=== PATIENT | male | born 1970 | race Caucasian/White ===

== ENCOUNTER 2021-06-06 12:40 | Emergency (ER) | payer BC, OTHER ==
[2021-06-06] MEDS ORDERED: KEFZOL 1 GM IM ONE (12:58)
[2021-06-06] MEDS ORDERED: HYDROCODONE-ACETAMIN 10-325 MG PO ONE (13:01)
[2021-06-06 13:02] VITALS: BP 166/103
[2021-06-06] MEDS ORDERED: KEFZOL 1 GM ONE ×2 (13:07→13:09)
--- NOTE | 2021-06-06 13:29 | XRAY ---
Indication: Laceration. Comparison: None 3 view left 2nd finger demonstrates distal plantar soft tissue swelling/laceration with overlying bandage material. No other bony, articular, or soft tissue abnormalities.
--- NOTE | 2021-06-06 13:38 | ERPHSYRPT ---
- History of Present Illness Source: patient Exam Limitations: no limitations Patient Subjective Stated Complaint: pt cut left index finger with circular saw Triage Nursing Assessment: pt alert, resp easy, skin w/d/p, has laceration to left index finger with small amt of bleedig, pressure dressing applied Physician History: 50 yo wm w L 2nd digit vs circular saw at home. Pt is R handed and strates that tetanus is UTD. Pt denies other/previous injury. Occurred: just prior to arrival Method of Injury: other (Circular saw vs L 2nd digit) Quality: constant, aching Severity of Pain-Max: severe Severity of Pain-Current: severe Extremities Pain Location: 2nd finger: left Modifying Factors: Improves With: movement Associated Symptoms: none Allergies/Adverse Reactions: No Known Drug Allergies Allergy (Unverified 06/06/21 13:02) Hx Tetanus, Diphtheria Vaccination/Date Given: Yes (last 5 years) Hx Influenza Vaccination/Date Given: No Hx Pneumococcal Vaccination/Date Given: No Immunizations Up to Date: Yes Travel Risk - International Travel Have you traveled outside of the country in past 3 weeks: No - Coronavirus Screening Are you exhibiting any of the following symptoms?: No Close contact with a COVID-19 positive Pt in past 14-21 Days: No - Vaccine Status Have you recieved a Covid-19 vaccination: Yes [employer]: [employer] - Vaccination Dates Dates if Unknown: ? - Review of Systems Constitutional: No Symptoms Eyes: No Symptoms Ears, Nose, & Throat: No Symptoms Respiratory: No Symptoms Cardiac: No Symptoms Abdominal/Gastrointestinal: No Symptoms Genitourinary Symptoms: No Symptoms Skin: No Symptoms Neurological: No Symptoms Psychological: No Symptoms Endocrine: No Symptoms Hematologic/Lymphatic: No Symptoms Immunological/Allergic: No Symptoms - Past Medical History Pertinent Past Medical History: No - Past Surgical History Gastrointestinal: Appendectomy Musculoskeletal: Orthopedic Surgery Other Surgical History: shoulders ,hands - Social History Smoking Status: Current every day smoker Exposure to second hand smoke: Yes Drug Use: none Patient Lives Alone: No Significant Family History: no pertinent family hx - Nursing Vital Signs Nursing Vital Signs: Initial Vital Signs Temperature 97 F 06/06/21 12:59 Pulse Rate 93 H 06/06/21 12:59 Respiratory Rate 18 06/06/21 12:59 Blood Pressure 166/103 06/06/21 12:59 O2 Sat by Pulse Oximetry 98 06/06/21 12:59 Pain Scale Pain Intensity 6 Hypertensive - Physical Exam General Appearance: no apparent distress Eyes, Ears, Nose, Throat Exam: normal ENT inspection, TMs normal, pharynx normal, moist mucous membranes Neck Exam: normal inspection, non-tender, supple, full range of motion, No Brudzinski, No Kernig's, No meningismus, No carotid bruit Cardiovascular/Respiratory Exam: normal breath sounds, regular rate/rhythm, heart sounds normal Abdominal Exam: non-tender, soft Back Exam: normal inspection, normal range of motion Shoulder Exam: normal inspection, non-tender, no evidence of injury Elbow/Forearm Exam: normal inspection, non-tender, no evidence of injury Wrist Exam: normal inspection, non-tender, no evidence of injury Hand Exam: laceration (L 2nd digit palmar, distal phalanyx w tissue defect/Good distal capillary return and sensation) Neuro/Tendon Exam: normal sensation, normal motor functions, normal tendon functions, responds to pain, no evidence tendon injury Mental Status Exam: alert, oriented x 3, cooperative Skin Exam: normal color, warm, dry SpO2 Interpretation: normal SpO2: 98 O2 Delivery: Room Air - Course Nursing assessment & vital signs reviewed: Yes - Radiology Exams Hand X-ray Interpretation: Discussed w/ radiologist (L 2nd digit wo fx-dislocation) Ordered Tests: Active Orders 24 hr Category Date Time Status FINGER(S) Stat Exams 06/06/21 13:19 Completed Medication Summary Discontinued Medications Generic Name Dose Route Start Last Admin Trade Name Giovanniq PRN Reason Stop Dose Admin Hydrocodone Bitart/Acetaminophen 1 tablet 06/06/21 13:01 06/06/21 13:07 Hydrocodone/Acetamin 10-325 Mg Tablet PO 06/06/21 13:02 1 tablet STAT ONE Administration Cefazolin Sodium 2 g 06/06/21 12:58 06/06/21 13:08 Cefazolin Sodium 1 Gm Vial IM 06/06/21 12:59 2 g STAT ONE Administration Cefazolin Sodium Confirm 06/06/21 13:07 Cefazolin Sodium 1 Gm Vial Administered 06/06/21 13:08 Dose 1 g .ROUTE .STK-MED ONE Cefazolin Sodium Confirm 06/06/21 13:09 Cefazolin Sodium 1 Gm Vial Administered 06/06/21 13:10 Dose 1 g .ROUTE .STK-MED ONE - Progress Progress Note: 06/06/21 13:40 2gms IM Kefzol [id number] po x1 06/06/21 14:20 Spoke w jovani Zuleta pt wrapped w xeroform gauze w appointment to see him at 8:30AM 06/07/21. Ok w Keflex. 06/06/21 19:27 L 2nd digit dressed per nursing/NVI Counseled pt/family regarding: diagnosis, need for follow-up, rad results - Departure Departure Disposition: Home Clinical Impression: Soft tissue injury of finger of left hand Condition: Stable Critical Care Time: No Referrals: DOCTOR,NO FAMILY [Primary Care Provider] - Follow up/PCP as directed Instructions: Wound Care (DC) Additional Instructions: Dr. Yo 8:30 tomorrow 06/07/21 [address] [facility] [address] Nothing to eat/drink after midnight Pain meds as needed Start antibiotic Prescriptions: Hydrocodone/Acetaminophen [Hydrocodone-Acetamin 10-325 mg] 1 each PO Q4-6HPRN PRN #10 tablet MDD 4 tabs PRN Reason: Pain Cephalexin Mh 500 mg [Keflex 500 mg] 500 mg PO TID #30
[2021-06-06 14:22] VITALS: PULSE 87
[2021-06-06 14:25] VITALS: O2SAT 98
== END 2021-06-06 14:42 | disposition home or self-care (01) ==
LOC: ED 12:40
DX: S61.211A Laceration without foreign body of left index finger without damage to nail, initial encounter (principal); W27.0XXA Contact with workbench tool, initial encounter; Y92.009 Unspecified place in unspecified non-institutional (private) residence as the place of occurrence of the external cause; Z72.0 Tobacco use
CPT/HCPCS: 73140; 96372; 99284; J0690; A9270-GY

== ENCOUNTER 2021-08-09 16:33 | Emergency (ER) | payer OTHER ==
--- NOTE | 2021-08-09 16:49 | ERPHSYRPT ---
- History of Present Illness Time Seen by Provider: 08/09/21 16:44 Source: patient Exam Limitations: no limitations Patient Subjective Stated Complaint: hand injury Triage Nursing Assessment: Patient ambulated back to ED and transferred self to bed. Patient A+O X3. patient's skin pink, warm and dry. Patient complains of left hand injury. Patient states he tripped and his left hand went into the wall causing a drywall nail to go through his left palm. Patient has 0.1cm X 0.1cm puncture site to palm of hand. Patient states his pain is 8/10 and very tender around his 3rd digit. 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 He did not completely penetrate but then immediately removed his hand. There does not appear to be any retained foreign body. However, he is having pain with movement of his left fourth digit. Patient recently had a tetanus shot. Therefore his tetanus status is up-to-date. He does have a relationship with the hand surgeon, Dr. Yo. Patient has no known drug allergies. Occurred: hours ago (1) Method of Injury: fell Quality: aching Severity of Pain-Max: mild (To moderate) Severity of Pain-Current: mild Extremities Pain Location: hand: left Modifying Factors: Improves With: movement Associated Symptoms: none Allergies/Adverse Reactions: No Known Drug Allergies Allergy (Verified 08/09/21 16:36) Hx Tetanus, Diphtheria Vaccination/Date Given: Yes (last 5 years) Hx Influenza Vaccination/Date Given: No Hx Pneumococcal Vaccination/Date Given: No Immunizations Up to Date: Yes Travel Risk - International Travel Have you traveled outside of the country in past 3 weeks: No - Coronavirus Screening Are you exhibiting any of the following symptoms?: No Close contact with a COVID-19 positive Pt in past 14-21 Days: No - Vaccine Status Have you recieved a Covid-19 vaccination: Yes 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 - Review of Systems Constitutional: No Symptoms Eyes: No Symptoms Ears, Nose, & Throat: No Symptoms Respiratory: No Symptoms Cardiac: No Symptoms Abdominal/Gastrointestinal: No Symptoms Genitourinary Symptoms: No Symptoms Musculoskeletal: Injury (Left hand) Skin: Other (Puncture wound palmar aspect left hand) Neurological: No Symptoms Psychological: No Symptoms Endocrine: No Symptoms Hematologic/Lymphatic: No Symptoms Immunological/Allergic: No Symptoms All Other Systems: Reviewed and Negative - Past Medical History Pertinent Past Medical History: No - Past Surgical History Past Surgical History: Yes Gastrointestinal: Appendectomy Musculoskeletal: Orthopedic Surgery Other Surgical History: shoulders ,hands - Social History Smoking Status: Current every day smoker Exposure to second hand smoke: Yes Drug Use: none Patient Lives Alone: No Significant Family History: no pertinent family hx - Nursing Vital Signs Nursing Vital Signs: Initial Vital Signs Temperature 98.0 F 08/09/21 16:37 Pulse Rate 101 H 08/09/21 16:37 Respiratory Rate 18 08/09/21 16:37 Blood Pressure 179/117 08/09/21 16:37 O2 Sat by Pulse Oximetry 95 08/09/21 16:37 Pain Scale Pain Intensity 8 - Physical Exam General Appearance: no apparent distress, alert Eyes, Ears, Nose, Throat Exam: normal ENT inspection, moist mucous membranes Neck Exam: normal inspection, non-tender, supple, full range of motion Cardiovascular/Respiratory Exam: chest non-tender, no respiratory distress Abdominal Exam: non-tender Back Exam: normal inspection, normal range of motion, No CVA tenderness, No vertebral tenderness Shoulder Exam: normal inspection, non-tender, no evidence of injury, normal ROM Elbow/Forearm Exam: normal inspection, non-tender, no evidence of injury, normal ROM Wrist Exam: normal inspection, non-tender, no evidence of injury, normal ROM Hand Exam: limited ROM (There is no evidence of bleeding or foreign body.), soft tissue tenderness (There is a 2 to 3 mm puncture wound in the center of his left hand, palmar aspect. It does not appear to be a through and through penetrating wound. The patient is able to flex and extend all fingers of the left hand. However, he is experiencing some pain when he flexes the left fourth digit. ) Neuro/Tendon Exam: normal sensation, normal motor functions, normal tendon functions, responds to pain, no evidence tendon injury Mental Status Exam: alert, oriented x 3, cooperative Skin Exam: normal color, warm, dry SpO2 Interpretation: normal SpO2: 95 O2 Delivery: Room Air - Course Nursing assessment & vital signs reviewed: Yes Ordered Tests: Active Orders 24 hr Category Date Time Status Wound Care STAT Care 08/09/21 16:46 Active HAND (MINIMUM 3 VIEWS) Stat Exams 08/09/21 16:54 Completed - Progress Progress: unchanged, pain not gone completely Progress Note: 08/09/21 17:02 X-ray left hand shows no acute fracture or dislocation. There is no evidence of any foreign body. Counseled pt/family regarding: diagnosis, need for follow-up, rad results - Departure Departure Disposition: Home Clinical Impression: Puncture wound of left hand Condition: Stable Critical Care Time: No Referrals: DOCTOR,NO FAMILY [Primary Care Provider] - Follow up/PCP as directed Additional Instructions: Keep areas clean with soap and water. Do not use lotions or ointments or creams to cover up the puncture wound. Take your antibiotics as prescribed. Call Dr. Yo office tomorrow, August 10, 2021, in the morning to make arrangements for follow-up appointment. Prescriptions: Hydrocodone/APAP 5/325 [[place] 5/325 mg] 1 each PO Q8H PRN PRN #6 tablet MDD 3 PRN Reason: Pain Cephalexin Mh 500 mg [Keflex 500 mg] 500 mg PO TID #21 cap
--- NOTE | 2021-08-09 17:01 | XRAY ---
Indication: Mid palm puncture wound. Comparison: None 3 view left hand obtained. No bony, articular, or soft tissue abnormalities.
[2021-08-09 17:08] VITALS: BP 168/106; PULSE 80; O2SAT 99
== END 2021-08-09 17:11 | disposition home or self-care (01) ==
LOC: ED 16:33
DX: S61.432A Puncture wound without foreign body of left hand, initial encounter (principal); W01.118A Fall on same level from slipping, tripping and stumbling with subsequent striking against other sharp object, initial encounter; Y93.H3 Activity, building and construction; Y92.009 Unspecified place in unspecified non-institutional (private) residence as the place of occurrence of the external cause; Z72.0 Tobacco use; Z79.891 Long term (current) use of opiate analgesic
CPT/HCPCS: 73130; 99283

== ENCOUNTER 2021-08-27 19:21 | Emergency (ER) | payer OTHER ==
--- NOTE | 2021-08-27 19:26 | ERPHSYRPT ---
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 Patient's tetanus status is up-to-date. Patient does have a hand surgeon he sees, Dr. Yo at of [facility] in [facility]. Patient has no known drug allergies. Occurred: just prior to arrival Method of Injury: other (Tablesaw lacerationaccidental) Quality: aching, throbbing Severity of Pain-Max: moderate Severity of Pain-Current: moderate Extremities Pain Location: thumb: left Modifying Factors: Improves With: movement Associated Symptoms: none Allergies/Adverse Reactions: No Known Drug Allergies Allergy (Verified 08/27/21 19:35) Hx Tetanus, Diphtheria Vaccination/Date Given: Yes (last 5 years) Hx Influenza Vaccination/Date Given: No Hx Pneumococcal Vaccination/Date Given: No Travel Risk - International Travel Have you traveled outside of the country in past 3 weeks: No - Coronavirus Screening Are you exhibiting any of the following symptoms?: No Close contact with a COVID-19 positive Pt in past 14-21 Days: No - Vaccine Status Have you recieved a Covid-19 vaccination: Yes 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 - Review of Systems Constitutional: No Symptoms Eyes: No Symptoms Ears, Nose, & Throat: No Symptoms Respiratory: No Symptoms Cardiac: No Symptoms Abdominal/Gastrointestinal: No Symptoms Genitourinary Symptoms: No Symptoms Musculoskeletal: Injury (Left thumb) Skin: Other (Serration left thumb) Neurological: No Symptoms Psychological: No Symptoms Endocrine: No Symptoms Hematologic/Lymphatic: No Symptoms Immunological/Allergic: No Symptoms All Other Systems: Reviewed and Negative - Past Medical History Pertinent Past Medical History: No - Past Surgical History Past Surgical History: Yes Gastrointestinal: Appendectomy Musculoskeletal: Orthopedic Surgery Other Surgical History: shoulders ,hands - Social History Smoking Status: Current every day smoker Exposure to second hand smoke: Yes Drug Use: none Patient Lives Alone: No Significant Family History: no pertinent family hx - Nursing Vital Signs Nursing Vital Signs: Initial Vital Signs Temperature 97.6 F 08/27/21 19:25 Pulse Rate 98 H 08/27/21 19:25 Respiratory Rate 18 08/27/21 19:25 Blood Pressure 176/112 08/27/21 19:25 O2 Sat by Pulse Oximetry 99 08/27/21 19:25 Pain Scale Pain Intensity 5 - Physical Exam General Appearance: no apparent distress, alert, anxiety Eyes, Ears, Nose, Throat Exam: normal ENT inspection, moist mucous membranes Neck Exam: normal inspection, non-tender, supple, full range of motion Cardiovascular/Respiratory Exam: chest non-tender, no respiratory distress Abdominal Exam: non-tender Back Exam: normal inspection, normal range of motion, No CVA tenderness, No vertebral tenderness Shoulder Exam: normal inspection, non-tender, no evidence of injury, normal ROM Elbow/Forearm Exam: normal inspection, non-tender, no evidence of injury, normal ROM Wrist Exam: normal inspection, non-tender, no evidence of injury, normal ROM Hand Exam: laceration (Left thumb dorsal aspect base of nail 3 cm mild oozing. Neurovascularly intact. Tendon function appears normal) Neuro/Tendon Exam: normal sensation, normal motor functions, normal tendon functions, responds to pain Mental Status Exam: alert, oriented x 3, cooperative Skin Exam: normal color, warm, dry, laceration O2 Delivery: Room Air (See above) Procedures - Laceration/Wound Repair Left Dorsal Finger Time of Procedure: 19:45 Wound Location: Left, hand (Dorsal thumb) Wound Length (cm): 3 Wound's Depth, Shape: superficial, linear Wound Explored: to base Irrigated: Yes Hibiclens Prep: Yes Anesthesia: 1% Lidocaine Volume Anesthetic (ccs): 3 Wound Repaired With: sutures Suture Size/Type: 3-0, nylon Number of Sutures: 6 Layer Closure?: No - Course Nursing assessment & vital signs reviewed: Yes Ordered Tests: Active Orders 24 hr Category Date Time Status HAND (MINIMUM 3 VIEWS) Stat Exams 08/27/21 20:02 Taken Medication Summary Discontinued Medications Generic Name Dose Route Start Last Admin Trade Name Freq PRN Reason Stop Dose Admin Bacitracin Zinc Confirm 08/27/21 19:56 Bacitracin Packet 0.9 Gm Pckt Administered 08/27/21 19:57 Dose 1 gm .ROUTE .STK-MED ONE Lidocaine HCl Confirm 08/27/21 19:32 Lidocaine Hcl 1% 20 Ml Mdv 20 Ml Ml Administered 08/27/21 19:33 Dose 10 ml .ROUTE .STK-MED ONE - Progress Progress: improved Progress Note: 08/27/21 20:36 Medical decision making: I reviewed the patient and his condition as well as radiographic findings with hand surgeon Dr. Yo. Dr. Yo agrees with the plan of antibiotics, pain control and follow-up in his office on Sunday, August 29, 2021. 08/27/21 20:37 X-ray left hand shows a distal phalanx nondisplaced fracture. Counseled pt/family regarding: diagnosis, need for follow-up, rad results - Departure Departure Disposition: Home Clinical Impression: Thumb laceration Condition: Stable Critical Care Time: No Referrals: DOCTOR,NO FAMILY [Primary Care Provider] - Follow up/PCP as directed Additional Instructions: Keep current bandage in place until you see Dr. Yo in his office. His office will call you Sunday, August 29, 2021 to arrange a follow-up at that afternoon. Take your antibiotics and pain medicine as prescribed. Prescriptions: Hydrocodone/APAP 5/325 [[place] 5/325 mg] 1 each PO Q8H PRN PRN #8 tablet MDD 3 PRN Reason: Pain Cephalexin Mh 500 mg [Keflex 500 mg] 500 mg PO TID #21 cap
[2021-08-27] MEDS ORDERED: XYLOCAINE 1% HCL 20 ML MDV ONE (19:32)
[2021-08-27] MEDS ORDERED: BACIGUENT PACKET ONE (19:56)
[2021-08-27] MEDS ORDERED: ROCEPHIN 1 Gm-D5w 50 ml Bag** 1 G/50 ML IVPB IV STA (20:42)
[2021-08-27] MEDS ORDERED: Hydromorphone 1 mg/ml Injection IV ONE (20:42)
[2021-08-27] MEDS ORDERED: Zofran 4 MG/2 ML VIAL IV ONE (20:42)
[2021-08-27] MEDS ORDERED: XYLOCAINE 1% HCL 20 ML MDV IJ ONE (20:43)
[2021-08-27] MEDS ORDERED: NORCO 5/325 MG PO ONE (20:43)
[2021-08-27] MEDS ORDERED: BACIGUENT PACKET TP ONE (20:43)
[2021-08-27] MEDS ORDERED: Zofran 4 MG/2 ML VIAL ONE (20:46)
[2021-08-27] MEDS ORDERED: Hydromorphone 1 mg/ml Injection ONE (20:46)
[2021-08-27] MEDS ORDERED: ROCEPHIN 1 Gm-D5w 50 ml Bag** 1 G/50 ML IVPB IV ONE (20:46)
[2021-08-27] MEDS ORDERED: NORCO 5/325 MG ONE (20:46)
[2021-08-27 21:06] VITALS: BP 161/109; PULSE 84; O2SAT 96
--- NOTE | 2021-08-27 21:54 | XRAY ---
Indication: Thumb laceration. Comparison: August 09, 2021. 3 view left hand demonstrates new nondisplaced fracture distal 1st phalanx with soft tissue swelling. No other bony, articular, or soft tissue abnormalities.
== END 2021-08-27 21:10 | disposition home or self-care (01) ==
LOC: ED 19:21
DX: S61.012A Laceration without foreign body of left thumb without damage to nail, initial encounter (principal); W31.2XXA Contact with powered woodworking and forming machines, initial encounter; Z72.0 Tobacco use
CPT/HCPCS: 12002; 29130; 36000; 73130; 96372; 96374; 96375; 99284; J0696; J1170; J2405; A9270-GY

== ENCOUNTER 2022-01-22 16:20 | Emergency (ER) | payer OTHER ==
--- NOTE | 2022-01-22 17:29 | ERPHSYRPT ---
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 I am not sure what cut me or if there is anything in there." Triage Nursing Assessment: alert and oriented X 3, skin pwd Pt has laceration notd to right thumb, approx 1 cm, laceration noted to right forearm approx 2 cm x 2 cm. PT has no other injuries or complaints. Physician History: 51-year-old male up-to-date with tetanus presented in the ER with chief complaint of laceration right forearm after he got off of a tractor, slipped and fell, tried to catch himself with outstretched hand and his forearm hit something causing laceration. Complaining of moderate intensity pain with palpation. No difficulty movements at the wrist and fingers. No numbness or tingling in the fingers. No injury anywhere else. Occurred: this afternoon Method of Injury: fell Quality: sharpness Severity of Pain-Max: moderate Severity of Pain-Current: moderate Extremities Pain Location: forearm: right Modifying Factors: Worsens With: movement Associated Symptoms: none Allergies/Adverse Reactions: No Known Drug Allergies Allergy (Verified 08/27/21 19:35) Hx Tetanus, Diphtheria Vaccination/Date Given: Yes (last 5 years) Hx Influenza Vaccination/Date Given: No Hx Pneumococcal Vaccination/Date Given: No Immunizations Up to Date: Yes Travel Risk - International Travel Have you traveled outside of the country in past 3 weeks: No - Coronavirus Screening Are you exhibiting any of the following symptoms?: No Close contact with a COVID-19 positive Pt in past 14-21 Days: No - Vaccine Status Have you recieved a Covid-19 vaccination: Yes 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 - Review of Systems Constitutional: No Symptoms Ears, Nose, & Throat: No Symptoms Respiratory: No Symptoms Cardiac: No Symptoms, Orthopnea Genitourinary Symptoms: No Symptoms Musculoskeletal: Injury Skin: Skin Lesions Neurological: No Symptoms Endocrine: No Symptoms Hematologic/Lymphatic: No Symptoms Immunological/Allergic: No Symptoms - Past Medical History Pertinent Past Medical History: Yes Cardiac History: Hypertension - Past Surgical History Past Surgical History: Yes Gastrointestinal: Appendectomy Musculoskeletal: Orthopedic Surgery Other Surgical History: shoulders ,hands - Social History Smoking Status: Current every day smoker How long have you smoked: 25 yrs Exposure to second hand smoke: Yes Drug Use: none Patient Lives Alone: No Significant Family History: no pertinent family hx - Nursing Vital Signs Nursing Vital Signs: Initial Vital Signs Temperature 98.7 F 01/22/22 16:28 Pulse Rate 90 01/22/22 16:28 Respiratory Rate 20 01/22/22 16:28 Blood Pressure 169/101 01/22/22 16:28 O2 Sat by Pulse Oximetry 96 01/22/22 16:28 Pain Scale Pain Intensity 2 - Physical Exam General Appearance: no apparent distress, alert Eyes, Ears, Nose, Throat Exam: normal ENT inspection Neck Exam: normal inspection, full range of motion Cardiovascular/Respiratory Exam: normal breath sounds, regular rate/rhythm Elbow/Forearm Exam: normal ROM, soft tissue tenderness (Right mid forearm with 1.5 cm laceration with partially cut tendon. Intact distal neurovascular. Intact extension at fingers/wrist and isolated distal interphalangeal joint.) Hand Exam: normal inspection, non-tender, no evidence of injury, normal ROM Neuro/Tendon Exam: normal sensation, normal motor functions Mental Status Exam: alert, oriented x 3, cooperative Skin Exam: normal color SpO2 Interpretation: normal SpO2: 96 O2 Delivery: Room Air Procedures - Laceration/Wound Repair Right Arm Time of Procedure: 17:06 Wound Location: Right Wound Length (cm): 1.5 Wound's Depth, Shape: into muscle Wound Explored: clean Irrigated: Yes Hibiclens Prep: Yes Anesthesia: 1% Lidocaine Volume Anesthetic (ccs): 4 Wound Repaired With: sutures Suture Size/Type: ethilon Number of Sutures: 3 Sterile Dressing Applied?: Yes Splint Applied?: No Ordered Tests: Active Orders 24 hr Category Date Time Status FOREARM Stat Exams 01/22/22 Ordered - Progress Progress: improved Progress Note: 01/22/22 17:26 Laceration is repaired. Has partial tendon cut, will refer an outpatient with hand surgery. X-rays reviewed by me did not reveal any acute osseous abnormality/foreign body. Official report is pending. Recommended Tylenol/ibuprofen and outpatient follow-up. Counseled pt/family regarding: diagnosis, need for follow-up, rad results - Departure Departure Disposition: Home Clinical Impression: Forearm laceration involving tendon Condition: Stable Critical Care Time: No Referrals: DOCTOR,NO FAMILY [Primary Care Provider] - Follow up/PCP as directed ABIGAIL DUFF MD [NON-STAFF PHY W/O PRIVILEGES] - Follow up/PCP as directed (Call tomorrow for reevaluation) Instructions: Laceration Repair With Stitches (DC) Additional Instructions: Take Tylenol/ibuprofen as needed for pain. Avoid exertional activity with right upper extremity. Follow-up with hand surgery for reevaluation. Return to ER for increasing swelling pain redness discharge/fever chills. Prescriptions: Ibuprofen 600 mg PO Q6HPRN PRN 10 Days #20 tablet PRN Reason: Pain
[2022-01-22 17:50] VITALS: BP 148/96; PULSE 84; O2SAT 97
--- NOTE | 2022-01-22 18:10 | XRAY ---
Indication: Posterior laceration following fall. Comparison: None 2 view right forearm demonstrates small focus posterior soft tissue swelling without radiopaque foreign body. No bony, articular, or soft tissue abnormalities.
== END 2022-01-22 18:02 | disposition home or self-care (01) ==
LOC: ED 16:20
DX: S56.921A Laceration of unspecified muscles, fascia and tendons at forearm level, right arm, initial encounter (principal); S51.811A Laceration without foreign body of right forearm, initial encounter; W01.10XA Fall on same level from slipping, tripping and stumbling with subsequent striking against unspecified object, initial encounter; Y93.H9 Activity, other involving exterior property and land maintenance, building and construction; M79.631 Pain in right forearm; I10 Essential (primary) hypertension; Z72.0 Tobacco use
CPT/HCPCS: 12001; 73090; 99282

== ENCOUNTER 2024-09-18 08:15 | Emergency (ER) | payer OTHER ==
[2024-09-18 08:23] VITALS: RESP 18; TEMP 98.2; O2SAT 98
--- NOTE | 2024-09-18 08:26 | ERPHSYRPT ---
- History of Present Illness Time Seen by Provider: 09/18/24 08:25 Source: patient Exam Limitations: no limitations Patient Subjective Stated Complaint: PT states "I have a bad back and I just went to Dr. Dukes for the first time the other day and they are doing the init ial drug screens and then he said he was going to do an injection and give some percocets but I cannot take the pain anymore. It is in my left hip." Triage Nursing Assessment: PT presented alert and oriented X 3, skin pwd. pt ambulates with a slow limp. Pt grunts and groans when he moves. Physician History: This is a 54-year-old white male patient who presents to the emergency department with chronic, intermittent left hip pain. Patient's primary care provider is Seun Zhu nurse practitioner. Patient saw Dr. Bolden, pain specialist on 09/11/2024. He did not receive any pain medication as the patient needed to provide a urine specimen for urine drug screen first. He has done that. He is to follow-up with Dr. Bolden to receive narcotic pain medicine under his direction and has an appointment on 09/23/2024 for injections. Patient denies chest pain. Patient denies shortness of breath. He has no abdominal pain. He has no urinary incontinence or bowel incontinence. He has no constipation. He does not have numbness in his left ankle or foot. He does not want any x-rays as he has had no fall or traumatic injury. Timing/Duration: intermittent (Chronically) Method of Injury: other (No injury) Quality: burning, sharp Back Pain Location: lumbar spine, paraspinous muscles (Lumbar level side and into left hip) Severity of Pain-Max: moderate Severity of Pain-Current: moderate Associated Symptoms: lower back pain, muscle spasms, No urinary incontinence, No loss of bowel control, No constipation, No problems urinating, No numbness in legs/feet, No tingling in legs/feet Previous symptoms: same symptoms as today, recently seen, no recent treatment Allergies/Adverse Reactions: No Known Drug Allergies Allergy (Verified 08/27/21 19:35) Home Medications: Lisinopril 20 mg [Zestril 20 MG] 20 mg PO DAILY 09/18/24 [History] Quetiapine Fumarate 100 mg [Seroquel 100 MG] 100 mg PO HS 09/18/24 [History] Hx Tetanus, Diphtheria Vaccination/Date Given: Yes (last 5 years) Hx Influenza Vaccination/Date Given: No Hx Pneumococcal Vaccination/Date Given: No Immunizations Up to Date: No Travel Risk - International Travel Have you traveled outside of the country in past 3 weeks: No - Emerging Infectious Disease Are you exhibiting symptoms associated with any current EIDs: No - Review of Systems Constitutional: No Symptoms Eyes: No Symptoms Ears, Nose, & Throat: No Symptoms Respiratory: No Symptoms Cardiac: No Symptoms Abdominal/Gastrointestinal: No Symptoms Genitourinary Symptoms: No Symptoms Musculoskeletal: Back Pain, Joint Pain (Left hip pain) Skin: No Symptoms Neurological: No Symptoms Psychological: No Symptoms Endocrine: No Symptoms Hematologic/Lymphatic: No Symptoms Immunological/Allergic: No Symptoms All Other Systems: Reviewed and Negative - Past Medical History Pertinent Past Medical History: Yes Cardiac History: Hypertension - Past Surgical History Past Surgical History: Yes Gastrointestinal: Appendectomy Musculoskeletal: Orthopedic Surgery Other Surgical History: shoulders ,hands Significant Family History: no pertinent family hx - Social History Smoking Status: Current every day smoker How long have you smoked: 25 yrs Exposure to second hand smoke: Yes Drug Use: none - Social Determinants of Health Will the patient participate in the screening: Declined to provide - Nursing Vital Signs Nursing Vital Signs: Initial Vital Signs Temperature 98.2 F 09/18/24 08:19 Pulse Rate 87 09/18/24 08:19 Respiratory Rate 18 09/18/24 08:19 Blood Pressure 196/109 09/18/24 08:19 O2 Sat by Pulse Oximetry 98 09/18/24 08:19 Pain Scale Pain Intensity 10 - Physical Exam General Appearance: mild distress, alert, anxiety, thin Eye Exam: PERRL/EOMI, eyes nml inspection Ears, Nose, Throat Exam: normal ENT inspection, moist mucous membranes Neck Exam: normal inspection, non-tender, supple, full range of motion Respiratory Exam: airway intact, No chest tenderness, No respiratory distress Gastrointestinal Exam: No tenderness Rectal Exam: not done Back Exam: muscle spasm (Left lower lumbar level muscle spasm paraspinous region. Pain shoots into the left hip), No vertebral tenderness, No point tenderness Extremity Exam: normal inspection, normal range of motion, pelvis stable Neurologic Exam: alert, oriented x 3, cooperative, spinner cap frame II-XII nml as tested, nml cerebellar function, nml station & gait, sensation nml Skin Exam: normal color, warm, dry Lymphatic Exam: No adenopathy SpO2 Interpretation: normal SpO2: 98 O2 Delivery: Room Air - Course Nursing assessment & vital signs reviewed: Yes - Progress Progress: improved, pain not gone completely Progress Note: 09/18/24 08:42 My medical decision making of the assignment of low complexity to this patient's medical issue today is based on review of the patient's past medical history, review the patient's medication list, reviewed patient drug allergy list, history present illness and physical findings on examination. The workup does not require any radiographic or laboratory studies. The patient does not want an x-ray. I am not convinced he actually needs one since he has had no acute trauma or fall injury. Differential diagnosis includes acute exacerbation of low back pain, left hip pain, sciatica Counseled pt/family regarding: diagnosis, need for follow-up - Departure Departure Disposition: Home Clinical Impression: Left-sided low back pain with sciatica Condition: Stable Critical Care Time: No Referrals: [facility] [employer]ATIVE [Primary Care Provider] - Follow up/PCP as directed Additional Instructions: Take your medications as prescribed. Call your prescribing provider and pain specialist today, 09/18/2024, to make arrangements for follow-up appointment for further evaluation management. Prescriptions: Prednisone 10 mg [Deltasone 10 mg] 10 mg PO TID #12 tablet Orphenadrine Citrate 100 mg [Norflex 100 MG Tablet] 100 mg PO BID #10 tab
[2024-09-18] MEDS ORDERED: ZOFRAN ODT 4 MG ONE (08:48)
[2024-09-18] MEDS ORDERED: Norflex 60 MG/2 ML ONE (08:48)
[2024-09-18] MEDS ORDERED: Sterile H2O 10 ml IJ ONE (08:48)
[2024-09-18] MEDS ORDERED: solu-MEDROL ONE (08:49)
[2024-09-18] MEDS ORDERED: Hydromorphone 1 mg/ml Injection ONE (08:49)
[2024-09-18] MEDS: solu-MEDROL 125 MG, Sterile H2O 10 ml 2 ML IM ONE (08:50)
[2024-09-18] MEDS: Norflex 60 MG/2 ML IM ONE (08:51)
[2024-09-18] MEDS: Hydromorphone 1 mg/ml Injection IM ONE (08:51)
[2024-09-18] MEDS: ZOFRAN ODT 4 MG PO ONE (08:51)
[2024-09-18 09:20] VITALS: BP 142/78; PULSE 89
== END 2024-09-18 09:26 | disposition home or self-care (01) ==
LOC: ED 08:15
DX: M54.42 Lumbago with sciatica, left side (principal); I10 Essential (primary) hypertension; Z79.52 Long term (current) use of systemic steroids; Z79.899 Other long term (current) drug therapy; Z72.0 Tobacco use
CPT/HCPCS: 96372; 99283; 99284; J1171; J2360; J2919; Q0162

== ENCOUNTER 2024-10-01 13:22 | Day surgery (SDC) | payer OTHER ==
[2024-10-01] MEDS ORDERED: LIDOCAINE HCL 2% 100 MG/5 ML IJ ONE (13:23)
[2024-10-01] MEDS ORDERED: propofoL IV ONE (14:46)
--- NOTE | 2024-10-01 17:00 | XRAY ---
Indication: Bilateral L4-S1 MBB. Intraoperative fluoroscopy provided for 9 seconds. Single digital spot image submitted for interpretation demonstrates posterior needle tips projecting over expected left and right L4-S1 nerve roots. Correlate with intraoperative findings/report.
--- NOTE | 2024-10-01 17:05 | XRAY ---
9 seconds of fluoroscopy was used in surgery for a bilateral L4-S1 MBB.
== END 2024-10-01 15:12 | disposition home or self-care (01) ==
LOC: SDC-PAIN 13:22
PROVIDERS: ATTEND Psychiatry & Neurology Pain Medicine
DX: M47.816 Spondylosis without myelopathy or radiculopathy, lumbar region (principal)
CPT/HCPCS: 64493; 64494; 72020; J2704